=== PATIENT | female | born 1945 | race Caucasian/White ===

== ENCOUNTER 2022-05-04 14:50 | Inpatient (IN) | payer MEDICARE, OTHER ==
[~2022-05-04] VITALS: Ht 152.4 cm; Wt 59.9 kg
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
--- NOTE | 2022-05-04 15:15 | NUR ---
IP ARCHITECT AT BEDSIDE
[2022-05-04] MEDS ORDERED: MORPHINE SULFATE INJ 4 MG/ML DISP.SYRIN ONE ×3 (15:17→19:45)
[2022-05-04] MEDS ORDERED: MORPHINE SULFATE INJ 2 MG/ML DISP.SYRIN IV ONE ×3 (15:30→20:00)
[2022-05-04 15:49] LABS: BASOPHILS # (AUTO) 0.1 K/uL (0.0-0.2); BASOPHILS % (AUTO) 0.4 % (0.0-2.0); EOSINOPHILS % (AUTO) 1.7 % (0.0-6.0); HEMATOCRIT 43 % (33-45); HEMOGLOBIN 13.8 g/dL (11.5-14.8); LYMPHOCYTES # (AUTO) 4.3 K/uL (0.8-4.8); LYMPHOCYTES % (AUTO) 28.7 % (20.0-44.0); MEAN CORPUSCULAR HGB CONC 33 g/dl (31.0-36.0); MEAN CORPUSCULAR VOLUME 90 fL (82-100); MONOCYTES # (AUTO) 0.7 K/uL (0.1-1.30); MONOCYTES % (AUTO) 4.7 % (2.0-12.0); NEUTROPHILS # (AUTO) 9.6 K/uL (1.8-8.9); NEUTROPHILS % (AUTO) 64.5 % (43.0-81.0); PLATELET COUNT (AUTO) 169 K/uL (150-450); RED BLOOD CELL COUNT(AUTO) 4.75 MIL/uL (4.0-5.2); WHITE BLOOD COUNT (AUTO) 14.9 K/uL (4.3-11.0)
[2022-05-04 15:55] LABS: CARBON DIOXIDE 29 mmol/L (21-32); CHLORIDE 104 mmol/L (98-107); CREATININE 1.4 mg/dL (0.6-1.3); GLUCOSE 121 mg/dL (74-106); POTASSIUM 4.4 mmol/L (3.5-5.1); SODIUM SERUM 141 mmol/L (136-145); UREA NITROGEN, BLOOD 44 mg/dL (7-18)
--- NOTE | 2022-05-04 16:00 | NUR ---
PATIENT TAKEN TO CT VIA JACKELINE
[2022-05-04] MEDS ORDERED: ONDANSETRON HCL/PF 4 MG/2 ML VIAL ONE ×2 (16:42→19:41)
[2022-05-04] MEDS ORDERED: ONDANSETRON HCL/PF - ER 4 MG/2 ML VIAL IV ONE ×2 (17:00→20:00)
[2022-05-04] MEDS ORDERED: HYDROCODONE/APAP 10/325MG TABLET ONE (19:28)
[2022-05-04] MEDS ORDERED: HYDROCODONE/APAP 10/325MG TABLET PO ONE (19:30)
--- NOTE | 2022-05-04 20:50 | NUR ---
SWAB FOR COVID19 SENT TO LAB
[2022-05-04] MEDS ORDERED: ONDANSETRON HCL/PF 4 MG/2 ML VIAL IVP PRN (21:00)
[2022-05-04] MEDS ORDERED: ACETAMINOPHEN 325 MG TABLET PO PRN (21:00)
--- NOTE | 2022-05-04 23:09 | NUR ---
REPORT GIVEN TO CHELSEY RN ROOM 313 FOR DONNELL
[2022-05-04 23:30] VITALS: BP 161/79
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
[2022-05-04] MEDS: IV NS 0.9% 1,000 ML IV PRN (23:47)
--- NOTE | 2022-05-04 23:47 | NUR ---
MS RN NOTES STARTED ON IVF NS AT 75ML/HR RATE ORDERED,
[2022-05-05] MEDS: HYDROCODONE/APAP 5/325MG TABLET PO PRN ×3 (00:08→11:42)
--- NOTE | 2022-05-05 00:08 | NUR ---
MS RN NOTES C/P PAIN 6/10 ON PAIN SCALE,;EFT ARM,NORCO 5/325MG,1 TAB PO GIVEN ORDERED,TAKEN WELL.VITAL SIGNS STABLE.
[2022-05-05] MEDS ORDERED: DEXTROSE 50%-WATER 50 ML DISP.SYRIN IV PRN (01:00)
--- NOTE | 2022-05-05 05:30 | NUR ---
MS RN NOTES ACCU-CHECK BLOOD SUGAR CHECK 131MG/DL.HUMULIN R 2 UNITS REFUSED BY PATIENT AND DAUGHTER.
[2022-05-05] MEDS ORDERED: DULA0.75 SQ (06:00)
[2022-05-05] MEDS ORDERED: starlix PO (06:00)
[2022-05-05] MEDS: BLOOD SUGAR DIAGNOSTIC 1 EACH STRIP IN SCH ×3 (06:03→17:45)
[2022-05-05] MEDS: INSULIN REGULAR, HUMAN 100 UNIT/ML 3 ML VIAL SQ PRN ×2 (06:03→11:42)
--- NOTE | 2022-05-05 06:33 | NUR ---
MS RN NOTES ON BED CALM,PAIN TOLERABLE AT THE MOMENT,DAUGHTER AT BEDSIDE.IVF INFUSING WELL RIGHT AC SALINE LOCK VIA IV PUMP,SITE PATENT.SLING ON LEFT ARM.DAUGHTER AT BEDSIDE.CALL LIGHT IN REACH,NEEDS ATTENDED.
[2022-05-05 06:41] LABS: CALCIUM, SERUM 8.9 mg/dL (8.5-10.1); CARBON DIOXIDE 28 mmol/L (21-32); CHLORIDE 105 mmol/L (98-107); CREATININE 1.2 mg/dL (0.6-1.3); GLUCOSE 134 mg/dL (74-106); MAGNESIUM 1.9 mg/dL (1.8-2.4); PHOSPHORUS 3.9 mg/dL (2.5-4.9); POTASSIUM 4.3 mmol/L (3.5-5.1); SODIUM SERUM 140 mmol/L (136-145); UREA NITROGEN, BLOOD 32 mg/dL (7-18)
--- NOTE | 2022-05-05 07:06 | NUR ---
MS RN NOTES PAIN MANAGEMENT C/O GENERALIZED PAIN 7/10 ON PAIN SCALE,NORCO 5/325MG,1 TAB PO GIVEN PER PATIENT REQUEST.
[2022-05-05 07:30] LABS: BASOPHILS % (AUTO) 0.4 % (0.0-2.0); EOSINOPHILS % (AUTO) 0.3 % (0.0-6.0); HEMATOCRIT 41 % (33-45); HEMOGLOBIN 13.4 g/dL (11.5-14.8); LYMPHOCYTES # (AUTO) 2.3 K/uL (0.8-4.8); LYMPHOCYTES % (AUTO) 26.5 % (20.0-44.0); MEAN CORPUSCULAR HGB CONC 32 g/dl (31.0-36.0); MEAN CORPUSCULAR VOLUME 90 fL (82-100); MONOCYTES # (AUTO) 0.7 K/uL (0.1-1.30); MONOCYTES % (AUTO) 8.4 % (2.0-12.0); NEUTROPHILS # (AUTO) 5.6 K/uL (1.8-8.9); NEUTROPHILS % (AUTO) 64.4 % (43.0-81.0); PLATELET COUNT (AUTO) 168 K/uL (150-450); RED BLOOD CELL COUNT(AUTO) 4.59 MIL/uL (4.0-5.2); WHITE BLOOD COUNT (AUTO) 8.7 K/uL (4.3-11.0)
--- NOTE | 2022-05-05 07:30 | NUR ---
MS RN OPENING NOTES RECEIVED PATIENT ON BED AWAKE AND A/O X3, BRUNEIAN SPEAKING. ON ROOM AIR TOLERATING WELL. NO SOB NOTED. NOT IN DISTRESS. WITH NO COMPLAINTS OF PAIN OR DISCOMFORT AT THIS TIME. WITH IV ACCESS AT THE RIGHT AC G20 WITH IVF NS AT 75ML/HR INFUSING WELL. SAFETY MEASURES IN PLACED. CALL LIGHT WITHIN REACH. BED ON LOWEST LOCKED POSITION, SIDE RAILS UP X2. WILL CONTINUE TO MONITOR.
[2022-05-05 08:00] VITALS: BP 135/68
[2022-05-05] MEDS: IV NS 0.9% 1,000 ML IV PRN (11:46)
[2022-05-05] MEDS: NATEGLINIDE 60 MG TABLET PO SCH ×2 (13:00→17:41)
[2022-05-05 16:00] VITALS: BP 133/61
[2022-05-05] MEDS ORDERED: MORPHINE SULFATE INJ 2 MG/ML DISP.SYRIN IV PRN (17:30)
[2022-05-05] MEDS ORDERED: HYDROCODONE/APAP 10/325MG TABLET PO PRN (17:30)
--- NOTE | 2022-05-05 19:15 | NUR ---
PATIENT LEFT VIA AMBULANCE TRANSPORTATION AMA IN STABLE CONDITION. CD FOR TEST RESULTS AND COPIES OF CARE PROVIDED GIVEN TO DAUGHTER. AMA FORM SIGNED. IV LINE AND NAME WRIST BAND REMOVED.
== END 2022-05-05 19:15 | disposition left against medical advice (07) | DRG 86 ==
LOC: ER 14:52 → MED 23:00 → TELE 05-05 16:55
PROVIDERS: ADMIT Nurse Practitioner Acute Care; ATTEND Nurse Practitioner Acute Care
DX: S02.831A Fracture of medial orbital wall, right side, initial encounter for closed fracture (principal); N17.9 Acute kidney failure, unspecified; S02.31XA Fracture of orbital floor, right side, initial encounter for closed fracture; S42.002A Fracture of unspecified part of left clavicle, initial encounter for closed fracture; S02.2XXA Fracture of nasal bones, initial encounter for closed fracture; V03.10XA Pedestrian on foot injured in collision with car, pick-up truck or van in traffic accident, initial encounter; Y92.410 Unspecified street and highway as the place of occurrence of the external cause; I10 Essential (primary) hypertension; E11.65 Type 2 diabetes mellitus with hyperglycemia; Z20.822 Contact with and (suspected) exposure to COVID-19; S80.02XA Contusion of left knee, initial encounter; S80.01XA Contusion of right knee, initial encounter; S50.01XA Contusion of right elbow, initial encounter
CPT/HCPCS: 36415; 70450-TC; 71045-TC; 72125-TC; 72170-TC; 73030-TC; 73140-TC; 73564-TC; 80048-TC; 82962-TC; 83735-TC; 84100-TC; 84484-TC; 85025-TC; 97530-TC; C9803; G0378; J1815; J2270; J2405; J7030